=== PATIENT | male | born 1950 | race Caucasian/White ===

== ENCOUNTER 2021-03-22 02:50 | Emergency (ER) | payer MEDICARE, BC, SELFPAY ==
[2021-03-22] VITALS (46 sets, daily range): BP systolic 118–162; BP diastolic 61–74; PULSE 38–78; RESP 9–29; TEMP 36.2–37.8; O2SAT 89–100
--- NOTE | 2021-03-22 03:00 | RT.EKG_ITS ---
APPROVED REPORT Exam: Resting ECG Reason for Exam: dizzy Patient Location: E HR:62 bpm ECG Measurements Heart Rate 62 AXIS NH 266 P 6 QRSd 96 QRS 31 QT 464 T 90 QTc 471 Conclusion Sinus rhythm...normal P axis, V-rate 60- 99 Prolonged NH interval...NH >220, V-rate 50- 90 Physician: no stemi, stable
--- NOTE | 2021-03-22 03:00 | DI.CT_ITS ---
Exam(s) CT HEAD CERVICAL SPINE WO EXAM: CT HEAD CERVICAL SPINE WO CLINICAL HISTORY: dizzy, lightheaded, headache, finger tingling. TECHNIQUE: Imaging Protocol: Axial computed tomography images with coronal and sagittal reformatted images were created and reviewed COMPARISON: CT HEAD WITHOUT CONTRAST from 04/29/2016 FINDINGS: CT Head: Ventricles and Extra axial spaces: Normal in size and morphology for the patient's age. Hemorrhage: None. Cerebral parenchyma: No acute territorial infarct. Midline shift: None. Brainstem/Cerebellum: Normal. Calvarium: Normal. Visualized Paranasal sinuses/Mastoids: Clear. Soft Tissues: Unremarkable. CT Cervical Spine: Bones: No acute fracture or subluxation. Multilevel degenerative changes are seen throughout the cerv ical spine. There is straightening of the normal cervical lordosis with minimal anterolisthesis of C 3 on C4. Multilevel central spinal canal is seen most marked at the C4 and C5 levels. Multilevel ne ural foraminal stenosis is seen most marked at the C5-6 level. Soft Tissues: Unremarkable. Visualized thyroid gland is unremarkable. Lung Apices: Clear. IMPRESSION: 1. No acute intracranial process. 2. No acute fracture or subluxation in the cervical spine. 3. Moderate cervical spondylosis. RADIATION DOSE DELIVERED: 1,396.46mGy.cm Total DLP DATA REPOSITORY: All CT scans at this facility are submitted to the National Radiology Data Registry (NRDR) Dose Index Registry (DIR) with the [employer] (A[employer]). RADIATION OPTIMIZATION: All CT scans at this facility use at least one of these dose optimization te chniques: automated exposure control; mA and/or kV adjustment per patient size (includes targeted exa ms where dose is matched to clinical indication); or iterative reconstruction.
--- NOTE | 2021-03-22 03:06 | W.ED.GENAD ---
Discharge Plan Disposition Patient Disposition: HOME Condition: Good Discharge Details Clinical Impression: Lightheadedness, Anemia, macrocytic, Hand tingling, Cervical arthritis Primary Care Provider: [facility] ED Provider: Lacho Whitley Home Meds and New Rx's Prescriptions: Continued docusate sodium [Colace] 100 MG capsule 2 cap PO BID RF: 0 metoprolol succinate [Toprol XL] 100 MG tablet extended release 24 hr 1 tab PO DAILY Qty: 90 RF: 4 amlodipine [Norvasc] 10 MG tablet 1.5 tab PO DAILY Qty: 135 RF: 4 lisinopril [Zestril] 10 MG tablet 1 tab PO DAILY Qty: 90 RF: 4 allopurinol 300 MG tablet 1 tab PO DAILY Qty: 90 RF: 4 sumatriptan succinate [Imitrex] 25 MG tablet 25 mg PO BID PRN PRN (Reason: Headache) Qty: 6 RF: 0 Discharge Instructions Instructions: Lightheadedness (ED) Additional Instructions: At this time your work-up shows no evidence of stroke, or heart attack. You do have mild macrocytic anemia, and your B12 levels are on the low end of normal. We do not have labs to compare with for quite a few years both here and at [facility]. Please follow-up closely with your primary care provider for further discussion of this and B12 supplementation. Additionally your CAT scan does show notable arthritis for your neck which may have been a component for the burning and tingling in your hands. You were also a little dehydrated and we have rehydrated you here. These all likely contributed to your feelings of lightheadedness that you had. Please stand up slowly. Stay well-hydrated. If you notice any worsening of your symptoms, or any new symptoms such as vomiting, diarrhea, fever, chills, shortness of breath, chest pain, numbness, weakness, or fainting , please return immediately to the emergency department for reevaluation. Please follow up with your primary care provider as soon as possible for reassessment and reevaluation. As always, it was a pleasure participating in your medical care today. Referrals: [facility] [Primary Care Provider] - Medical Decision Making This is a 70-year-old male with a past medical history of hypertension, renal disease secondary to his hypertension, recently started dialysis on 7 months ago, and has dialysis on Thursday//Thursday, who presents today for evaluation of lightheadedness, and near syncope. Patient states that when he had dialysis yesterday he got lightheaded during the dialysis, and also had tingling in his hands. He essentially completed his dialysis well. Then tonight the patient continued to feel lightheaded, felt like he was going to pass out. He again noticed some tingling and burning in his fingertips. He does admit to chronic decreased sensation in his fingertips. He denies any chest pain or tearing or ripping sensation. Any arm neck or shoulder pain. He does admit to a small amount of shortness of breath chronically but feels fine now. He does admit to a generalized achy headache on his temples, He denies any sudden onset headache, worst headache of his life, or throbbing-like sensation. He denies any visual changes or syncope. He denies fever chills or neck pain. No other complaints at this time. No other modifying factors. Physical exam demonstrates no focal neurologic deficits. He does have a very small amount of horizontal lie but no vertical or rotatory nystagmus. No meningeal signs. Clinically she is symptoms appear inconsistent with bleed or stroke. Cardiac dysrhythmia is on the differential however he denies any family history or personal history of stroke, ACS, or other concerning intercranial or heart abnormality. We will evaluate for concerning potential pathology get a CT scan of his head, EKG, monitor closely and reassess. [address] result demonstrate no evidence of acute process. Patient does have notable arthritis of the cervical spine. Evaluation of the read does suggest that this may have been a potential cause of his tingling that he was having in his feet fingers. Additionally the patient does demonstrate evidence of mild macrocytic anemia. We do not have any lab values to compare with for the past few years. I did look at [facility] records and saw no other comparisons. [facility] at [facility]. B12 levels are on the low end of normal. These may be a component of why he got lightheaded and why he has the burning and tingling in his hands. Repeat assessment continues to show no focal neurologic deficits. No symptoms suggestive of stroke. At this time patient stable, and shows no significant abnormalities on exam or work-up requiring admission. Do feel patient is stable for discharge with close follow-up with his clerk of scales, and for family doctor at the NH. Patient feels well. Headache is controlled. Patient was given 250 cc bolus, and is able to ambulate well with no syncope or lightheadedness. Discussed red flags which to return. I have extensively reviewed the treatment plan and discharge instructions with the patient. I have addressed all patient concerns at this time. The patient was made aware of what symptoms to monitor for that would warrant a return to the emergency department. Discussed the plan with the patient, they demonstrate verbal understanding and agreement with our assessment and plan at this time. The documentation in this chart was dictated using [employer] dictation software. Please excuse any dictation errors. EKG 3: 09 Rate 62, W[place] prolonged at 266, QT unremarkable. No STEMI. No significant ST elevations or depressions. FINDINGS: Brain: There is mild age related parenchymal atrophy with prominence of the cortical sulci. Periventricular and deep white matter hypodensities are consistent with sequela of chronic microvascular ischemic disease. No midline shift or herniation. No acute intracranial hemorrhage. Cerebral ventricles: No ventriculomegaly. Paranasal sinuses: Imaged paranasal sinuses appropriately aerated without air-fluid levels. Mastoid air cells: No mastoid effusion. Bones/joints: Unremarkable. No acute osseous finding. Soft tissues: No focal soft tissue abnormality. IMPRESSION: No acute intracranial finding. FINDINGS: Bones/joints: No acute fracture. There is minimal anterolisthesis of C3 on C4 secondary to degenerative facet changes. There are severe degenerative facet changes asymmetric to the right at C2-C4 with ankylosis of the right posterior elements at C3-C4. Moderate bilateral degenerative facet changes at C4-C5. There is straightening of normal cervical lordosis which may be secondary to patient positioning versus muscle spasm. Discs/Spinal canal/Neural foramina: Moderate intervertebral disc height loss at the C4-C6 levels, mild at the adjacent levels. There are degenerative endplate changes with marginal osteophytosis at the C4-C6 levels. Varying degrees of mild multilevel osseous neural foraminal narrowing, most advanced at C5-C6. There is mild osseous central canal narrowing at the C4 and C5 levels without high-grade osseous central canal stenosis. Thyroid: Thyroid incompletely visualized limiting evaluation. No discrete nodule or mass within imaged thyroid gland. Lymph nodes: No pathologically sized nodes by CT size criteria. Lungs: Lung apices are clear. Vasculature: Mild vascular calcifications of the bilateral carotid bulbs. Soft tissues: No focal abnormality. IMPRESSION: 1. No acute fracture. 2. Moderate cervical spondylosis as discussed. Thank you for allowing us to participate in the care of your patient. Dictated and Authenticated by: Gume Weinstein MD 03/22/2021 3:55 AM Eastern Time ([place] & [place]) FINDINGS: Lungs: Unremarkable. No consolidation. Pleural spaces: Unremarkable. No pleural effusion. No pneumothorax. Heart/Mediastinum: Unremarkable. No cardiomegaly. Bones/joints: Unremarkable. IMPRESSION: No acute findings. Thank you for allowing us to participate in the care of your patient. Dictated and Authenticated by: Nelson Perkins MD 03/22/2021 4:42 AM Eastern Time ([place] & [place]) HPI General Date/Time Provider Initiated Documentation: 03/22/21 02:53. HPI Narrative: This is a 70-year-old male with a past medical history of hypertension, renal disease secondary to his hypertension, recently started dialysis on 7 months ago, and has dialysis on Thursday//Thursday, who presents today for evaluation of lightheadedness, and near syncope. Patient states that when he had dialysis yesterday he got lightheaded during the dialysis, and also had tingling in his hands. He essentially completed his dialysis well. Then tonight the patient continued to feel lightheaded, felt like he was going to pass out. He again noticed some tingling and burning in his fingertips. He does admit to chronic decreased sensation in his fingertips. He denies any chest pain or tearing or ripping sensation. Any arm neck or shoulder pain. He does admit to a small amount of shortness of breath chronically but feels fine now. He does admit to a generalized achy headache on his temples, He denies any sudden onset headache, worst headache of his life, or throbbing-like sensation. He denies any visual changes or syncope. He denies fever chills or neck pain. No other complaints at this time. No other modifying factors. Related Data Home Medications Medication Instructions Recorded Confirmed docusate sodium [Colace] 2 cap PO BID 07/22/12 03/22/21 allopurinol 1 tab PO DAILY #90 tab 10/26/12 03/22/21 amlodipine [Norvasc] 1.5 tab PO DAILY #135 tab 10/26/12 03/22/21 lisinopril [Zestril] 1 tab PO DAILY #90 tab 10/26/12 03/22/21 metoprolol succinate [Toprol XL] 1 tab PO DAILY #90 tab 10/26/12 03/22/21 sumatriptan succinate [Imitrex] 25 mg PO BID PRN PRN #6 tab 04/29/16 03/22/21 Previous Rx's Medication Instructions Recorded sumatriptan succinate [Imitrex] 25 mg PO BID PRN PRN #6 tab 04/29/16 Allergies Allergy/AdvReac Type Severity Reaction Status Date / Time Penicillins Allergy Severe Swelling/Ed Unverified 03/22/21 04:10 pebbles shellfish derived Allergy Severe Swelling/Ed Unverified 03/22/21 04:10 pebbles Review of Systems All systems reviewed & are unremarkable except as noted in HPI and below PFSH All Active Problems (Updated 03/22/21 @ 04:53 by Lacho Whitley DO) Lightheadedness (Acute) Anemia, macrocytic (Acute) Hand tingling (Acute) Cervical arthritis (Acute) Surgical History Cholecystectomy (~1998) Colonoscopy - MAC (~2005) tubular adenoma Social History Smoking/Tobacco Use Status: Never Smoking risk assessment performed?: Yes Substance use type: does not use Do you feel safe at home: Yes Do you feel safe in your relationship?: Yes Exam Narrative Exam Narrative: 1.Const: Well-nourished, Well-developed, appearing stated age 2.Eyes: PERRL, no conjunctival injection, and symmetrical lids. 3.ENT: Atraumatic external nose and ears. Slightly dry MM. Neck: Symmetric, trachea midline, No thyromegaly. Patient demonstrates good movement of cervical neck. There is no nuchal rigidity, no nuchal tenderness. Patient is able to flex the neck without any difficulty or significant pain. Negative Kernig's and Brudzinski sign. 4.CVS: +S1/S2, No murmurs or gallops. Peripheral pulses 2+ and equal in all extremities. Brisk capillary refill in all extremities. 5.RESP: Unlabored respiratory effort. Clear to auscultation bilaterally. No wheezes rales or rhonchi 6.GI: Soft, Nontender/Nondistended, No hepatosplenomegaly. No guarding or rebound. 7.MSK: Normocephalic/Atraumatic, Extremities w/o deformity or ttp No cyanosis or clubbing, Normal movement of all extremities 8.Skin: Warm, Dry. No rashes or lesions. 9.Neuro: players assistant II-XII grossly intact. Sensation grossly intact, no focal neurologic deficits. All 6 cardinal planes of vision are fully intact. No evidence of rotatory or vertical nystagmus. The patient demonstrated a normal [id number], good dexterity. There was no evidence of dysdiadochokinesia. Patient was able to ambulate without difficulty. There was no wide-based gait. Romberg testing was normal. Abdw-ul-kivu testing was normal. Sensation was intact bilaterally as well as muscle strength bilaterally for all extremities. Patient was able to verbalize butter cup with no slurring, or miss pronunciation. 10.Psych: (AAO) x3. Appropriate mood and affect
--- NOTE | 2021-03-22 03:15 | DI.RAD_ITS ---
Exam(s) XR PORTABLE CHEST AP EXAM: XR PORTABLE CHEST AP CLINICAL HISTORY: dialysis pt, shortness of breath TECHNIQUE: 2D digital imaging was performed of the chest. One image was obtained. An AP view was ob tained. COMPARISON: CR LUMBAR SPINE COMPLETE from 07/07/2008 CR LUMBAR SPINE COMPLETE from 07/07/2008 FINDINGS: MEDIASTINUM: Normal. HEART: Normal. PULMONARY VASCULATURE: Normal. LUNGS: Clear. PLEURAL SPACE: No pleural effusion or pneumothorax. BONE:Within normal limits for the patient's age. OTHER FINDINGS:There is an ovoid partially air-filled density overlying the right hemidiaphragm. Thi s may represent hiatal/diaphragmatic hernia. CT scan of the chest may be considered for further eval uation. IMPRESSION: No acute pulmonary findings. Incidental Findings DATA REPOSITORY: RADIATION DOSE DELIVERED:
[2021-03-22 03:20] LABS: Abs Immature Grans 0.02 10^3/uL (0.0-0.06); Absolute Basophil Count 0.02 10^3/uL (0.0-0.2); Absolute Eosinophil Count 0.26 10^3/uL (0.0-0.7); Absolute Lymphocyte Count 0.87 10^3/uL (1.2-3.4); Absolute Monocyte Count 0.78 10^3/uL (0.1-0.8); Absolute Neutrophil Count 3.71 10^3/uL (1.2-6.7); Basophils % 0.4; Eosinophils % 4.6; HCT 29.7 % (40.0-50.0); HGB 9.2 g/dL (13.5-17.5); Immature Grans % 0.4; Lymphocytes % 15.4; MCH 31.6 pg (27.0-33.0); MCV 102.1 fL (80-95); MPV 9.6 fL (8.0-11.0); Monocytes % 13.8; Neutrophils % 65.4; Nucleated RBC 0 %; Platelet Count 159 10^3/uL (130-400); RBC 2.91 10^6/uL (4.36-5.78); RDW 13.6 % (11.8-14.1); RDW-SD 50.8 fL; WBC 5.66 10^3/uL (4.4-10.8)
[2021-03-22 03:35] LABS: ALT 12 U/L (16-63); AST 18 U/L (15-37); Albumin 2.7 g/dL (3.4-5.0); Alkaline Phosphatase 62 U/L (46-116); Anion Gap 5.8 mmol/L (3-11); BUN 37 mg/dL (7-18); Bilirubin, Total 0.3 mg/dL (0.2-1.0); CO2 32.2 mmol/L (21.0-32.0); Calcium 9.1 mg/dL (8.5-10.1); Chloride 98 mmol/L (98-107); Estimated GFR 9.14 (mL/min/1.73m2); Glucose 92 mg/dL (74-106); Potassium 4.7 mmol/L (3.5-5.1); Sodium 136 mmol/L (136-145); Total Protein 6.2 g/dL (6.4-8.2)
[2021-03-22 03:36] LABS: Troponin I < 0.05 ng/mL (<0.06)
[2021-03-22 03:38] LABS: CREATININE 6.1 mg/dL (0.70-1.30)
--- NOTE | 2021-03-22 03:55 | DI.VRAD_ITS ---
PROCEDURE INFORMATION: Exam: CT Head Without Contrast Exam date and time: 03/22/2021 3:06 AM Age: 70 years old Clinical indication: Other: Dizzy, lightheaded, headache, finger tingling TECHNIQUE: Imaging protocol: Computed tomography of the head without contrast. COMPARISON: CT HEAD WITHOUT CONTRAST 04/29/2016 11:10 AM FINDINGS: Brain: There is mild age related parenchymal atrophy with prominence of the cortical sulci. Periventricular and deep white matter hypodensities are consistent with sequela of chronic microvascular ischemic disease. No midline shift or herniation. No acute intracranial hemorrhage. Cerebral ventricles: No ventriculomegaly. Paranasal sinuses: Imaged paranasal sinuses appropriately aerated without air-fluid levels. Mastoid air cells: No mastoid effusion. Bones/joints: Unremarkable. No acute osseous finding. Soft tissues: No focal soft tissue abnormality. IMPRESSION: No acute intracranial finding. PROCEDURE INFORMATION: Exam: CT Cervical Spine Without Contrast Exam date and time: 03/22/2021 3:06 AM Age: 70 years old Clinical indication: Other: Dizzy, lightheaded, headache, finger tingling TECHNIQUE: Imaging protocol: Computed tomography images of the cervical spine without contrast. COMPARISON: CT HEAD WITHOUT CONTRAST 04/29/2016 11:10 AM FINDINGS: Bones/joints: No acute fracture. There is minimal anterolisthesis of C3 on C4 secondary to degenerative facet changes. There are severe degenerative facet changes asymmetric to the right at C2-C4 with ankylosis of the right posterior elements at C3-C4. Moderate bilateral degenerative facet changes at C4-C5. There is straightening of normal cervical lordosis which may be secondary to patient positioning versus muscle spasm. Discs/Spinal canal/Neural foramina: Moderate intervertebral disc height loss at the C4-C6 levels, mild at the adjacent levels. There are degenerative endplate changes with marginal osteophytosis at the C4-C6 levels. Varying degrees of mild multilevel osseous neural foraminal narrowing, most advanced at C5-C6. There is mild osseous central canal narrowing at the C4 and C5 levels without high-grade osseous central canal stenosis. Thyroid: Thyroid incompletely visualized limiting evaluation. No discrete nodule or mass within imaged thyroid gland. Lymph nodes: No pathologically sized nodes by CT size criteria. Lungs: Lung apices are clear. Vasculature: Mild vascular calcifications of the bilateral carotid bulbs. Soft tissues: No focal abnormality. IMPRESSION: 1. No acute fracture. 2. Moderate cervical spondylosis as discussed. Dictated and Authenticated by: Gume Weinstein MD. Ordering:PARVIZ Monk MD
[2021-03-22 04:05] LABS: TSH (W/Ref FT4) 4.52 uIU/mL (0.36-3.74)
[2021-03-22 04:35] LABS: Vitamin B12 267 pg/mL (193-986)
[2021-03-22 04:36] LABS: FREE T4 0.97 ng/dL (0.76-1.46)
--- NOTE | 2021-03-22 04:42 | DI.VRAD_ITS ---
PROCEDURE INFORMATION: Exam: XR Chest Exam date and time: 03/22/2021 3:36 AM Age: 70 years old Clinical indication: Other: Dialysis PT, shortness of breath TECHNIQUE: Imaging protocol: XR of the chest. Views: 1 view. COMPARISON: CT HEAD CERVICAL SPINE WO 03/22/2021 3:23 AM FINDINGS: Lungs: Unremarkable. No consolidation. Pleural spaces: Unremarkable. No pleural effusion. No pneumothorax. Heart/Mediastinum: Unremarkable. No cardiomegaly. Bones/joints: Unremarkable. IMPRESSION: No acute findings. Dictated and Authenticated by: Nelson Perkins MD. Ordering:PARVIZ Monk MD
[2021-03-22] MEDS: Normal Saline 500 ML 250 ML IV (05:02)
[2021-03-22] MEDS: ACETAMINOPHEN 1,000 MG/100 ML BTL 400 MG IVPB (05:12)
[2021-03-22 08:33] LABS: Source Nasal/Nares
--- NOTE | 2021-03-22 11:00 | RT.EKG_ITS ---
APPROVED REPORT Exam: Resting ECG Reason for Exam: bradycardia Patient Location: E HR:57 bpm ECG Measurements Heart Rate 57 AXIS NJ 286 P -28 QRSd 94 QRS 41 QT 489 T 89 QTc 476 Conclusion Sinus bradycardia...rate< 60 Prolonged NJ interval...NJ >220, V-rate 50- 90 Nonspecific T abnrm, anterolateral leads...T <-0.10mV, I aVL V2-V6
[2021-03-22 12:02] LABS: COVID-19 PCR Negative (Negative)
== END 2021-03-22 13:17 | disposition short-term general hospital (02) ==
PROVIDERS: Student in an Organized Health Care Education/Training Program; Emergency Provider Emergency Medicine
DX: R42 Dizziness and giddiness (principal); D53.9 Nutritional anemia, unspecified; R20.2 Paresthesia of skin; M47.812 Spondylosis without myelopathy or radiculopathy, cervical region; R00.1 Bradycardia, unspecified; Z20.822 Contact with and (suspected) exposure to COVID-19
CPT/HCPCS: 80053; 87040; 87635; 93005; 96361; 96374; 99285; 70450; 71045; 72125; 82607; 84439; 84443; 84484; 85025; 93010; 93225; J0131

== ENCOUNTER 2021-04-01 13:43 | Outpatient (REF) | payer MEDICARE, BC, SELFPAY ==
[2021-04-02 14:10] LABS: COVID-19 RT-PCR UVMMC Result Negative (Negative)
== END 2021-04-01 13:44 | disposition home or self-care (01) ==
LOC: LBN 13:43
PROVIDERS: Visit Provider Physician Assistant
DX: Z20.822 Contact with and (suspected) exposure to COVID-19 (principal)
CPT/HCPCS: U0003; U0005

== ENCOUNTER 2023-07-20 09:20 | Emergency (ER) | payer MEDICARE, BC, SELFPAY ==
[2023-07-20 09:31] VITALS: BP 180/82; PULSE 82; RESP 18; TEMP 36.8; O2SAT 99
--- NOTE | 2023-07-20 12:18 | ED.GENADUL_ITS ---
Discharge Plan Disposition Patient Disposition: Home Condition: Stable Discharge Details Clinical Impression: Acute constipation Primary Care Provider: Unknown,Unknown ED Provider: Nico Davis Home Meds and New Rx's Prescriptions: New polyethylene glycol 3350 17 gram/dose powder 17 g PO BID Qty: 119 0RF bisacodyl [Dulcolax (bisacodyl)] 10 mg suppository 10 mg AK DAILY PRNQty: 12 0RF Continued amlodipine [Norvasc] 10 MG tablet 1.5 tab PO DAILY Qty: 135 sertraline 50 mg tablet 50 mg PO DAILY atorvastatin 20 mg tablet 20 mg PO DAILY Discontinued docusate sodium [Colace] 100 MG capsule 2 cap PO BID oxycodone 5 mg tablet 5 mg PO Q4-5H PRN Patient Comments: TAKE ONE TABLET BY MOUTH EVERY 4 HOURS NEEDED Discharge Instructions Instructions: Constipation (ED) Additional Instructions: Stop using oxycodone immediately. Please contact your primary care physician to arrange follow-up. Return to the ER immediately for any worsening or new concerning symptoms. Discharge Data Discharge Date/Time-TO BE ENTERED AT DEPARTURE: 07/20/23 12:43 HPI General Mode of arrival: ambulatory . Date/Time Provider Initiated Documentation: 07/20/23 10:26 . Limitations to Documentation: no limitations . Information obtained by: patient . HPI Narrative: 73-year-old female presents 6 days status post right shoulder replacement with constipation. Patient notes he had a small bowel movement few days ago but has been constipated compared to his usual. He notes he has tried senna, MiraLAX, milk of magnesium and prune juice. He has continued to take oxycodone and took a dose this morning as prescribed every 4 for pain postoperatively. Denies abdominal pain. Related Data Home Medications Medication Instructions Recorded Confirmed amlodipine 10 mg tablet (Norvasc) 1.5 tab PO DAILY #135 tabs 10/26/12 07/20/23 atorvastatin 20 mg tablet 20 mg PO DAILY 07/20/23 07/20/23 bisacodyl 10 mg rectal suppository 10 mg AK DAILY PRN #12 ea 07/20/23 (Dulcolax (bisacodyl)) polyethylene glycol 3350 17 17 g PO BID #119 grams 07/20/23 gram/dose oral powder sertraline 50 mg tablet 50 mg PO DAILY 07/20/23 07/20/23 Previous Rx's Medication Instructions Recorded bisacodyl 10 mg rectal suppository 10 mg AK DAILY PRN #12 ea 07/20/23 (Dulcolax (bisacodyl)) polyethylene glycol 3350 17 17 g PO BID #119 grams 07/20/23 gram/dose oral powder Allergies Allergy/AdvReac Type Severity Reaction Status Date / Time Penicillins Allergy Severe Swelling/Ed Verified 04/01/21 10:26 pebbles shellfish derived Allergy Severe Swelling/Ed Verified 04/01/21 10:26 pebbles General Stated Complaint: Abd Prob CHELY: 3 Review of Systems Constitutional Constitutional: Denies fever(s) Gastrointestinal Gastrointestinal: Reports as per HPI, Denies abdominal pain, Denies nausea and Denies vomiting Exam Const General: cooperative and no acute distress Eyes Conjunctivae: normal conjunctivae Sclera: normal sclerae Resp Auscultation: clear to auscultation bilaterally, no rales, no rhonchi and no wheezes Cardio Rate: regular rate and not tachycardic Rhythm: regular rhythm GI Palpation: soft, not firm, no guarding, no masses, not rigid and nontender Neuro General: patient alert, patient awake and tone normal Course Vital Signs Vital signs: Vital Signs Temperature 36.8 C 07/20/23 09:31 Pulse 82 07/20/23 09:31 Respiratory Rate 18 07/20/23 09:31 Blood Pressure 180/82 H 07/20/23 09:31 Pulse Oximetry 99 07/20/23 09:31 Temperature 36.8 C 07/20/23 09:31 Temperature Source Temporal Artery Scan 07/20/23 09:31 Pulse 82 07/20/23 09:31 Respiratory Rate 18 07/20/23 09:31 Respiratory Effort Normal, Non-Labored 07/20/23 10:45 Blood Pressure 180/82 H 07/20/23 09:31 Blood Pressure Position Supine 07/20/23 09:31 Pulse Oximetry 99 07/20/23 09:31 Oxygen Delivery Method Room Air 07/20/23 09:31 Oxygen Flow Rate 0 07/20/23 09:31 Pain Level 5 07/20/23 10:45 Medical Decision Making 73-year-old male here status post right shoulder replacement 6 days ago, now on oxycodone, here with constipation. Abdominal exam benign. Fleets enema given. Small BM. Plan for discharge on polyethylene glycol low-dose with Dulcolax suppository. Plan for outpatient follow-up with PCP. Quality:SDOH Health Related Social Needs: No Data to Display PFSH All Active Problems Acute constipation (Acute) Bradycardia (Acute) Cervical arthritis (Acute) Hand tingling (Acute) Anemia, macrocytic (Acute) Lightheadedness (Acute) Surgical History Colonoscopy - MAC (~2005) tubular adenoma Cholecystectomy (~1998) Social History Smoking/Tobacco Use Status: Never Smoking risk assessment performed?: Yes Substance use type: does not use Housing: house Do you feel safe at home: Yes Do you feel safe in your relationship?: Yes
== END 2023-07-20 12:43 | disposition home or self-care (01) ==
PROVIDERS: Emergency Provider Student in an Organized Health Care Education/Training Program
DX: K59.00 Constipation, unspecified (principal); N18.6 End stage renal disease; Z99.2 Dependence on renal dialysis
CPT/HCPCS: 99283

== ENCOUNTER 2024-04-25 01:30 | Emergency (ER) | payer OTHER, SELFPAY ==
[2024-04-25 01:37] VITALS: BP 151/100; PULSE 70; RESP 15; TEMP 36.5; O2SAT 100
--- NOTE | 2024-04-25 03:19 | W.ED.GENAD ---
Discharge Plan Disposition Patient Disposition: Home Condition: Good Discharge Details Clinical Impression: Hemorrhage of tongue Primary Care Provider: Angelique,Local ED Provider: Lacho Whitley Home Meds and New Rx's Prescriptions: No Action amlodipine [Norvasc] 10 MG tablet 10 mg PO DAILY Qty: 135 sertraline 50 mg tablet 50 mg PO DAILY atorvastatin 20 mg tablet 20 mg PO DAILY Eliquis 5 mg tablet 5 mg PO BID Discharge Instructions Additional Instructions: At this time the bleeding has stopped. If it does recur please apply the 4 x 4 gauze and apply significant pressure to that area. Please return if any bleeding resumes. If you notice any worsening of your symptoms, or any new symptoms such as vomiting, diarrhea, fever, chills, shortness of breath, chest pain, numbness, weakness, or fainting , please return immediately to the emergency department for reevaluation. Please follow up with your primary care provider as soon as possible for reassessment and reevaluation. As always, it was a pleasure participating in your medical care today. HPI General Date/Time Provider Initiated Documentation: 04/25/24 01:33. HPI Narrative: 73-year-old male with a past medical history of atrial fibrillation on Eliquis, presents today for bleeding from his tongue. Patient states that in his sleep he jumped on his tongue which caused significant bleeding. He woke up with notable clots in his mouth. Bleeding is improved but has still persisted and so he came to the ER for further assessment. He denies fever, chills, headache, chest pain or shortness of breath. No difficulty breathing. No other complaints at this time. Related Data Home Medications ?Medication ?Instructions ?Recorded ?Confirmed amlodipine 10 mg tablet (Norvasc) 10 mg PO DAILY #135 tabs 10/26/12 04/25/24 atorvastatin 20 mg tablet 20 mg PO DAILY 07/20/23 04/25/24 sertraline 50 mg tablet 50 mg PO DAILY 07/20/23 04/25/24 apixaban 5 mg tablet (Eliquis) 5 mg PO BID 04/25/24 04/25/24 Allergies Allergy/AdvReac Type Severity Reaction Status Date / Time Penicillins Allergy Severe Swelling/Ed Verified 04/01/21 10:26 pebbles shellfish derived Allergy Severe Swelling/Ed Verified 04/01/21 10:26 pebbles General Stated Complaint: DentalOral CHELY: 4 Exam Narrative Exam Narrative: 1.Const: Well-nourished, Well-developed, appearing stated age 2.Eyes: PERRL, no conjunctival injection, and symmetrical lids. 3.ENT: Atraumatic external nose and ears. Moist MM. Neck: Symmetric, trachea midline, No thyromegaly. Patient's tongue demonstrates what appears to be a macerated edge on the left lateral aspect and superior component. Hematoma is present, contused component is present, but no active bleeding or large laceration at this time. 4.CVS: +S1/S2, Peripheral pulses 2+ and equal in all extremities. Brisk capillary refill in all extremities. 5.RESP: Unlabored respiratory effort. Clear to auscultation bilaterally. No wheezes rales or rhonchi 6.GI: Soft, Nontender/Nondistended, No hepatosplenomegaly. No guarding or rebound. 7.MSK: Normocephalic/Atraumatic, Extremities w/o deformity or ttp No cyanosis or clubbing, Normal movement of all extremities 8.Skin: Warm, Dry. No rashes or lesions. 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 Sensation grossly intact, no focal neurologic deficits. 10.Psych: (AAO) x3. Appropriate mood and affect Course Vital Signs Vital signs: Vital Signs Temperature 36.5 C 04/25/24 01:37 Pulse 70 04/25/24 01:37 Respiratory Rate 15 04/25/24 01:37 Blood Pressure 151/100 H 04/25/24 01:37 Pulse Oximetry 100 04/25/24 01:37 Temperature 36.5 C 04/25/24 01:37 Temperature Source Tympanic 04/25/24 01:37 Pulse 70 04/25/24 01:37 Respiratory Rate 15 04/25/24 01:37 Blood Pressure 151/100 H 04/25/24 01:37 Blood Pressure Position Sitting 04/25/24 01:37 Pulse Oximetry 100 04/25/24 01:37 Oxygen Delivery Method Room Air 04/25/24 01:37 Oxygen Flow Rate 0 04/25/24 01:37 Pain Level 2 04/25/24 01:37 Medical Decision Making 73-year-old male with a past medical history of atrial fibrillation on Eliquis, presents today for bleeding from his tongue. Patient states that in his sleep he jumped on his tongue which caused significant bleeding. He woke up with notable clots in his mouth. Bleeding is improved but has still persisted and so he came to the ER for further assessment. He denies fever, chills, headache, chest pain or shortness of breath. No difficulty breathing. No other complaints at this time. Physical exam demonstrates a bruised and contused left lateral aspect of his tongue, with a small hematoma, and evidence of abrasion. Initially on inspection there was no bleeding, we did observe the patient for 30 minutes and then it did start bleeding again. Lidocaine with epinephrine was applied, as well as topical TXA. Patient tolerated this well. He was then observed for an additional 45 minutes. It was offered that the patient could wait for continued observation to make sure there was no rebleed, but patient declined and requested to go home. Patient will be discharged home with extra gauze to be used as needed if bleeding recurs. With no large laceration no indication for suture repair. Patient stable for discharge. At time of discharge there was no bleeding whatsoever. Discussed red flags for which to return. I have extensively reviewed the treatment plan and discharge instructions with the patient. I have addressed all patient concerns at this time. The patient was made aware of what symptoms to monitor for that would warrant a return to the emergency department. Discussed the plan with the patient, they demonstrate verbal understanding and agreement with our assessment and plan at this time. The documentation in this chart was dictated using [employer] dictation software. Please excuse any dictation errors. Quality:SDOH Health Related Social Needs: No Data to Display PFSH All Active Problems (Updated 04/25/24 @ 03:21 by Lacho Whitley DO) Hemorrhage of tongue (Acute) Bradycardia (Acute) Cervical arthritis (Acute) Hand tingling (Acute) Anemia, macrocytic (Acute) Lightheadedness (Acute) Surgical History Colonoscopy - MAC (~2005) tubular adenoma Cholecystectomy (~1998) Social History Smoking/Tobacco Use Status: Never Smoking risk assessment performed?: Yes Alcohol Intake: former Drug use: Occasionally Substance use type: marijuana Details: THC gummies to sleep Housing: house Do you feel safe at home: Yes Do you feel safe in your relationship?: Yes
[2024-04-25 03:24] VITALS: BP 190/93; PULSE 68; RESP 17; TEMP 36.6; O2SAT 98
[2024-04-25] MEDS: Tranexamic Acid 1,000 MG/10 ML VIAL 1000 MG (03:38)
[2024-04-25] MEDS: Silver Nitrate Stick 1 EACH TP (03:38)
== END 2024-04-25 03:38 | disposition home or self-care (01) ==
LOC: ER 03:49
PROVIDERS: Emergency Provider Student in an Organized Health Care Education/Training Program
DX: Z79.01 Long term (current) use of anticoagulants; X58.XXXA Exposure to other specified factors, initial encounter; S00.532A Contusion of oral cavity, initial encounter
CPT/HCPCS: 99283; J2004

== ENCOUNTER 2024-06-03 07:15 | Emergency (ER) | payer OTHER, SELFPAY ==
--- NOTE | 2024-06-03 07:15 | DI.CT_ITS ---
Exam(s) CT HEAD WO EXAM: CT HEAD WO CLINICAL HISTORY: head injury, + AC. TECHNIQUE: Imaging Protocol: Axial computed tomography images with coronal and sagittal reformatted images were created and reviewed COMPARISON: No exams were available for comparison FINDINGS: Ventricles and Extra axial spaces: Normal in size and morphology for the patient's age. Hemorrhage: None. Cerebral parenchyma: No acute mass effect. No evidence of an acute territorial infarct. Midline shift: None. Brainstem/Cerebellum: Normal. Calvarium: Normal. Visualized Paranasal sinuses/Mastoids: Clear. Soft Tissues: Unremarkable. IMPRESSION: 1. No acute intracranial process. 2. Findings were discussed with Dr. Barrios at 8:52 a.m. on 06/03/2024. RADIATION DOSE DELIVERED: 874.71mGy.cm Total DLP DATA REPOSITORY: All CT scans at this facility are submitted to the National Radiology Data Registry (NRDR) Dose Index Registry (DIR) with the [employer] (A[employer]). RADIATION OPTIMIZATION: All CT scans at this facility use at least one of these dose optimization te chniques: automated exposure control; mA and/or kV adjustment per patient size (includes targeted exa ms where dose is matched to clinical indication); or iterative reconstruction.
[2024-06-03 07:22] VITALS: BP 116/58; PULSE 91; RESP 20; TEMP 36.8; O2SAT 96
--- NOTE | 2024-06-03 07:37 | ED.GENADUL_ITS ---
Discharge Plan Discharge Details Chief Complaint: Laceration Primary Care Provider: Angelique,Local ED Provider: Lisa Watson Home Meds and New Rx's Prescriptions: No Action amlodipine [Norvasc] 10 MG tablet 10 mg PO DAILY Qty: 135 sertraline 50 mg tablet 50 mg PO DAILY atorvastatin 20 mg tablet 20 mg PO DAILY Eliquis 5 mg tablet 5 mg PO BID sevelamer carbonate 800 mg tablet 800 mg PO TID Patient Comments: TAKE 3 TABLETS BY MOUTH THREE TIMES DAILY WITH MEALS AND 1 TABLET TWICE DAILY WITH SNACKS ( TOTAL DAILY DOSE OF 11 TABLETS ) lansoprazole 15 mg capsule,delayed release(DR/EC) 15 mg PO DAILY Patient Comments: TAKE ONE CAPSULE BY MOUTH EVERY DAY ropinirole 0.25 mg tablet 0.25 mg PO DAILY lisinopril 40 mg tablet 40 mg PO DAILY HPI General Mode of arrival: EMS . Date/Time Provider Initiated Documentation: 06/03/24 07:23 . Limitations to Documentation: no limitations . Information obtained by: patient . HPI Narrative: 74yo M with hx HTN, HLD, ESRD on dialysis, afib on Eliquis presenting for head injury. Leaving house to go to dialysis when a board fell and struck the top of his head around 0615. No LOC. [place] lightheaded for about 20-30 minutes after the event; this has since resolved. Mild headache currently. No nausea, vomiting, numbness, weakness, vertigo, vision changes. Denies anything striking his neck. No pain or injury elsewhere including no neck pain, chest pain, or abdominal pain. In his usual state of health prior to this event. Related Data Home Medications ?Medication ?Instructions ?Recorded ?Confirmed amlodipine 10 mg tablet (Norvasc) 10 mg PO DAILY #135 tabs 10/26/12 06/03/24 atorvastatin 20 mg tablet 20 mg PO DAILY 07/20/23 06/03/24 sertraline 50 mg tablet 50 mg PO DAILY 07/20/23 06/03/24 apixaban 5 mg tablet (Eliquis) 5 mg PO BID 04/25/24 06/03/24 lansoprazole 15 mg capsule,delayed 15 mg PO DAILY 06/03/24 06/03/24 release lisinopril 40 mg tablet 40 mg PO DAILY 06/03/24 06/03/24 ropinirole 0.25 mg tablet 0.25 mg PO DAILY 06/03/24 06/03/24 sevelamer carbonate 800 mg tablet 800 mg PO TID 06/03/24 06/03/24 Allergies Allergy/AdvReac Type Severity Reaction Status Date / Time Penicillins Allergy Severe Swelling/Ed Verified 06/03/24 07:26 pebbles shellfish derived Allergy Severe Swelling/Ed Verified 06/03/24 07:26 pebbles General Stated Complaint: Laceration CHELY: 3 Review of Systems Narrative: see HPI Exam Narrative Exam Narrative: GENERAL: Alert, no acute distress SKIN: Warm and well perfused. HEAD: 1cm laceration to top of head, hemostatic. Otherwise atraumatic, normocephalic without edema, discoloration or evidence of trauma. Facial bones without deformities or tenderness. EYES: PERRL. No scleral icterus or conjunctival injection. Extraocular muscles intact without nystagmus or diplopia. MOUTH: No malocclusion or trismus. Moist mucus membranes without blood. Posterior pharynx without erythema or exudate. NECK: Trachea midline. No discolorations or edema. Full pain free ROM with flexion, extension, and lateral rotation CV: Regular rate and rhythm, Normal s1 and s2. No murmurs, rubs, or gallops. PV: Radial pulses 2+ bilaterally and symmetric. Dorsalis pedis pulses 2+ bilaterally and symmetric. 2+ capillary refill. No extremity edema. CHEST: Chest symmetric with respirations. No chest wall tenderness. ABDOMEN: Soft, nondistended, nontender. BACK: Spine without bony tenderness, no step offs. MSK: Dressing to left shoulder, LUE in sling. No gross deformities or discolorations or lesions. Aside from LUE, tolerates full range of motion of extremities without tenderness. NEURO: GCS 15.? PERRL.? EOMI.? Fluent speech, no dysarthria. Motor- 5/5 strength symmetric bilateral upper and lower extrmeties including shoulder abductors/adductors, elbow flexors/extensors, wrist flexors/extensors, finger abductors/adductors, hipflexors/extensors, knee flexors/extensors, ankle dorsiflexors and planter flexors. Sensation- ?Intact to light touch and symmetric multiple dermatomes including upper and lower extremities Coordination- No dysmetria on finger to nose Reflexes- 2/4 achilles & patellar, no clonus CRANIAL NERVES: II: Pupils equal and reactive, III, IV, : EOM intact, no gaze preference or deviation, no nystagmus. V: normal sensation in V1, V2, and V3 segments bilaterally VII: no asymmetry, no nasolabial fold flattening VIII: normal hearing to speech IX, X: normal palatal elevation, no uvular deviation XI: 5/5 head turn and 5/5 shoulder shrug bilaterally XII: midline tongue protrusion Course Vital Signs Vital signs: Vital Signs Temperature 36.8 C 06/03/24 07:22 Pulse 91 H 06/03/24 07:22 Respiratory Rate 20 06/03/24 07:22 Blood Pressure 116/58 L 06/03/24 07:22 Pulse Oximetry 96 06/03/24 07:22 Temperature 36.8 C 06/03/24 07:22 Pulse 91 H 06/03/24 07:22 Respiratory Rate 20 06/03/24 07:22 Blood Pressure 116/58 L 06/03/24 07:22 Pulse Oximetry 96 06/03/24 07:22 Oxygen Delivery Method Room Air 06/03/24 07:22 Oxygen Flow Rate 0 06/03/24 07:22 Procedure Laceration Laceration 1: Date of Procedure: 06/03/24 Time of procedure: 07:30 Patient Consented: Verbally Site: scalp Description: linear Depth: simple, single layer Pre-repair:: irrigated extensively Skin layer closed with: tin Number of sutures:: 1 Medical Decision Making 74yo M with hx HTN, HLD, ESRD on dialysis, afib on Eliquis presenting for head injury; struck by a falling board when leaving for dialysis this morning. No LOC. Lightheaded for about 30 minutes after event, this has since resolved. No neurologic symptoms. Vital signs reassuring on arrival. Hemostatic 1cm laceration to top of scalp; no other traumatic findings on exam. C-spine clinically cleared. Normal neurologic exam. Laceration repaired with single staple. HR in 60's on my exam; would not get CBC or other labs. As he is on eliquis, will get non-con head CT to evaluate for ICH though I have low suspicion for this. Tetanus booster ordered. Will be signed out to oncoming physician; plan to followup CT. If normal, would discharge. Quality:SDOH Health Related Social Needs: No Data to Display [facility] All Active Problems (Updated 05/26/24 @ 00:03 by NESTOR MICHAEL) Bradycardia (Acute) Cervical arthritis (Acute) Hand tingling (Acute) Anemia, macrocytic (Acute) Lightheadedness (Acute) Surgical History Colonoscopy - MAC (~2005) tubular adenoma Cholecystectomy (~1998) Social History Smoking/Tobacco Use Status: Never Smoking risk assessment performed?: Yes Alcohol Intake: former Drug use: Occasionally Substance use type: marijuana Details: THC gummies to sleep Housing: house Do you feel safe at home: Yes Do you feel safe in your relationship?: Yes
[2024-06-03] MEDS: Diph,Pertuss(Acell),Tet Vac/Pf 0.5 ML SYR IM (07:49)
--- NOTE | 2024-06-03 08:17 | W.EDPROG ---
Date of service: 06/03/24 Time of Service: 08:18 Medical Decision Making I received signout on this 74-year-old male history of end-stage renal disease on dialysis who struck his head and is pending CT head. He had a small laceration for which his tetanus was updated. Laceration was closed with a staple. If his CT scan is reassuring he will be discharged to dialysis. 8:[address] head negative for any intracranial hemorrhage. I met with the patient. Patient received acetaminophen and was discharged to dialysis. Quality:[facility] Health Related Social Needs: No Data to Display Discharge Plan Disposition Patient Disposition: Home Discharge Details Clinical Impression: Laceration of scalp, Hx of falling, Immunization, tetanus-diphtheria Primary Care Provider: Angelique,Local ED Provider: Ramsey Barrios [place] Meds and New Rx's Prescriptions: Continued amlodipine [Norvasc] 10 MG tablet 10 mg PO DAILY Qty: 135 sertraline 50 mg tablet 50 mg PO DAILY atorvastatin 20 mg tablet 20 mg PO DAILY Eliquis 5 mg tablet 5 mg PO BID sevelamer carbonate 800 mg tablet 800 mg PO TID Patient Comments: TAKE 3 TABLETS BY MOUTH THREE TIMES DAILY WITH MEALS AND 1 TABLET TWICE DAILY WITH SNACKS ( TOTAL DAILY DOSE OF 11 TABLETS ) lansoprazole 15 mg capsule,delayed release(DR/EC) 15 mg PO DAILY Patient Comments: TAKE ONE CAPSULE BY MOUTH EVERY DAY ropinirole 0.25 mg tablet 0.25 mg PO DAILY lisinopril 40 mg tablet 40 mg PO DAILY Discharge Instructions Additional Instructions: You are seen in the emergency department for your fall. You had a laceration of your scalp which was closed with a staple. Please return to the emergency department in 7 to 10 days or follow-up with primary care provider or urgent care to have your staple removed. If you develop nausea or vomiting that does not stop please return to the emergency department. For your pain please take medications as follows: 1. Take acetaminophen (Tylenol), 1,000 mg (two 500 mg tabs) every 6 hours Discharge Data Discharge Date/Time-TO BE ENTERED AT DEPARTURE: 06/03/24 09:32
[2024-06-03] MEDS: Acetaminophen 500 MG TAB 1000 MG PO (08:32)
[2024-06-03 09:05] VITALS: BP 116/58; PULSE 91; RESP 20; TEMP 36.8; O2SAT 96
== END 2024-06-03 09:32 | disposition home or self-care (01) ==
PROVIDERS: Emergency Provider Emergency Medicine
DX: S01.01XA Laceration without foreign body of scalp, initial encounter (principal); W20.8XXA Other cause of strike by thrown, projected or falling object, initial encounter; Z23 Encounter for immunization
CPT/HCPCS: 00123; 12001; 90471; 90715; 99284; 70450; 99283